=== PATIENT | male | born 1945 | race Caucasian/White ===

== ENCOUNTER 2018-02-19 16:07 | Observation (INO) | payer OTHER ==
[~2018-02-19] VITALS: Ht 172.7 cm; Wt 74.8 kg
[~2018-02-19 16:07] MED LIST: ACYCLOVIR200 MG PO; ALLOPURINOL300 MG PO; ASPIRIN325 MG PO; AZITHROMYCIN250 MG PO; CODEINE-GUAIFE120 ML PO; COZAAR50 MG PO; DIGOXIN250 MCG PO; DOXAZOSIN MESYLA1 MG PO; DOXAZOSIN MESYLA8 MG PO; FELODIPINE ER5 MG PO; FUROSEMIDE40 MG PO; GEMFIBROZIL600 MG PO; GLIPIZIDE XL5 MG PO; JANUMET 50-1,01 EACH PO; LANTUS100 UNITS/ SUB-Q; LEVOTHYROXINE50 MCG PO; METFORMIN HCL500 MG PO; METOPROLOL SUC100 MG PO; NEURONTIN400 MG PO; NITROSTAT0.4 MG SL; OMEPRAZOLE20 MG PO; ONGLYZA2.5 MG PO; PRAVACHOL20 MG PO; PREDNISONE1 MG PO; PROBENECID-COL1 EACH PO; ROCALTROL0.5 MCG PO; THERMAZENE TOP
[2018-02-19] MEDS ORDERED: ASPIR 8181 MG PO (16:34)
--- NOTE | 2018-02-19 19:30 | NUR ---
PT SHIFT REPORT RECEIVED FROM DAY SHIFT RN. ALL QUESTIONS ANSWERED. PT RESTING IN BED. WILL CONTINUE TO CLOSELY MONITOR.
--- NOTE | 2018-02-19 20:00 | NUR ---
MD IN ROOM TO ASSESS PT ON ADMISSION.
--- NOTE | 2018-02-19 20:30 | NUR ---
-PT SHIFT ASSESSMENT COMPLETED. PT BREATH SOUNDS CLEAR. PT IS ON 1-2 LITTER OXYGEN VIA NC AT HOME. PT IS ON 1L NC AT THIS TIME. NO EDEMA NOTED IN EXTREMITIES. PT STATES IT TENDS TO COME AND GO. BOWEL TONES ACTIVE. PT COMPLAINS OF CONSTIPATION AND REQUESTING FOR SOMETHING TO ASSIST WITH IT. NO OTHER ISSUES AT THIS TIME. WILL CONTINUE TO CLOSELY MONITOR.
--- NOTE | 2018-02-19 21:30 | NUR ---
PT REQUESTING CLEAR LIQUIDS. PT DRINKING VEGETABLE BROTH AND SUGAR FREE JELLO. PT TOLERATED WELL. FRESH ICE WATER AT BEDSIDE.
--- NOTE | 2018-02-19 21:45 | NUR ---
ALL MEDICATIONS ADMINISTERED. PT SWOLLOWED PILLS WITH NO ISSUES. PT IS VERY TALKATIVE AND INTERACTIVE. PT CALLS APPROPRIATELY.
--- NOTE | 2018-02-19 22:10 | NUR ---
PT UP TO BATHROOM. PT URINATED IN URINAL AND THEN SAT TO HAVE BM. PT HAD A SOFT MEDIUM BLACK COLLORED STOOL. HEMOCCULT POSITIVE. PT BACK TO BED. PT IS STEADY ON HIS FEET WITH ONE PERSON STAND-BY TO MANAGE CORDS. PT DENIES ANY FURTHER QUESTIONS. WILL CONTINUE TO CLOSELY MONITOR.
--- NOTE | 2018-02-20 | NUR ---
PT RESTING IN BED AT THIS TIME WITH THE TV ON. PT STATES "I HAVE BEEN IN AND OUT OF SLEEPING". 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 WILL CONTINUE TO ENCOURAGE REST. PT HAS CALL LIGHT. WILL CONTINUE TO MONITOR.
--- NOTE | 2018-02-20 03:30 | NUR ---
PT CALLED TO USE URINAL. PT UP AT BEDSIDE WITH URINAL WITH NO ISSUES. PT BACK TO BED. GAVE WARM BLANKET. LEMON SWABS AT BEDSIDE FOR DRY MOUTH. FLUIDS CHANGED TO 65ML PER HOUR PER ORDERS. WILL CONTINUE TO CLOSELY MONITOR.
--- NOTE | 2018-02-20 05:15 | NUR ---
TIPPLE GREASER IN TO DRAW MORNING LABS. PT RESTING IN BED. PT DENIES ANY NEEDS AT THIS TIME.
--- NOTE | 2018-02-20 06:30 | NUR ---
PT AND THIS RN DOWN TO 2-VIEW XRAY WITH SPECIAL EDUCATION PROFESSOR. PT TOLERATED WELL.
--- NOTE | 2018-02-20 07:58 | NUR ---
PT AWAKE, ASSESSMENT COMPLETED, DENIES C/O AT THIS TIME. VITAL SIGNS TAKEN AND A.M. MEDS GIVEN WITH SIP OF WATER.
--- NOTE | 2018-02-20 08:59 | HP ---
[facility] [address] [place], [place] [address] Signed ADMISSION DATE: 02/19/2018 TIME OF SERVICE: 7 p.m. CHIEF COMPLAINT: Dark stools. HISTORY OF PRESENT ILLNESS: Mr. Peoples is a 72-year-old gentleman with multiple medical problems, including chronic systolic heart failure with NYHA class III symptoms and chronic kidney disease stage 4 with a baseline creatinine of 3 to 3.4. The patient is known to have a history of gastrointestinal bleeding. The patient was hospitalized in 2012, underwent an endoscopy, which showed pyloric bulb ulcer. The patient presented to the emergency room after being referred from the [facility] for history of melanotic stools with a hemoglobin of 9.9. Dr. Browne consulted me and the patient was placed under observation. After interview and review of multiple medical notes obtained from Dr. Novak's office, primary care provider; airplane technician, Dr. David, and aircraft cleaner, Dr. Cuellar, it is learnt that the patient has chronic systolic heart failure with an EF of 20%-25%, with severe mitral regurgitation with underlying coronary artery disease. The patient was recently hospitalized between the and December, for decompensated heart failure. Review of the discharge summary from [facility] notes a hemoglobin of 10.5 to 10.8 during the hospitalization. Creatinine was 3.0. The patient describes having dark stools at least for the last one week. Symptoms started with no particular contact such as NSAID use or blood thinner use. The dark stools have been ongoing, moderate grade, one episode daily. No aggravating factors. No relieving factors. He denies having any associated features of nausea, vomiting, abdominal pain, heart burn, or bright red bleeding per rectum. Given his prior history and worsening symptoms, he presented to the emergency room after being referred to the clinic. PAST MEDICAL HISTORY: 1. Chronic systolic heart failure with left ventricular ejection fraction of 20%-25%, class NYHA III symptoms with severe mitral regurgitation. 2. Coronary artery disease with recent coronary angiogram showed akinetic segments in Electronically Signed By: NICKIE MEADE MD 02/20/18 0859 PATIENT NAME: LELAND PEOPLES HISTORY AND PHYSICAL DATE OF : 43 REPORT #: [id number] PHYSICIAN: NICKIE MEADE MD PCP: ELIGIO DUARTE MD REPORT IS CONFIDENTIAL AND NOT TO BE RELEASED WITHOUT AUTHORIZATION [facility] [address] [place], [place] [address] Signed the inferior wall and occlusion of the radial graft. Patent CARBAJAL to LAD and SVG to PDA. 3. Chronic hypoxic respiratory failure on home oxygen at 2L. 4. Benign prostatic hyperplasia. 5. Type 2 diabetes mellitus. 6. History of gastrointestinal bleeding as detailed above. 7. Hypothyroidism. 8. Anemia secondary to chronic kidney disease. 9. Probable transitional cell carcinoma status post TURB. 10. Probable Parkinson disease. 11. Chronic Kidney Disease Stage 4. SOCIAL HISTORY: The patient is . Quit tobacco use in 1994. Seldom takes alcohol. FAMILY HISTORY: Reviewed for hypertension, cancer, nothing contributing to the presenting complaint. REVIEW OF SYSTEMS: A 14-point review of systems were completed. All were negative except as listed above. PHYSICAL EXAMINATION: VITAL SIGNS: Temperature 36.5-36.7, heart rate of 73-77, respirations 16-18, blood pressure 127-146 by 50-67. Saturations of 99% on 2 L. weight is 75 kg. GENERAL: The patient is in no acute physical distance. EYES: No scleral icterus. EARS, NOSE, MOUTH, AND THROAT: Moist oral mucosa. No nasal discharge. CARDIAC: S1, S2 regular. Pansystolic murmur heard in the mitral area. No pitting pedal edema. No jugular venous distention. LUNGS: Bilaterally clear to auscultation without any crackles or wheezing. GASTROINTESTINAL: The abdomen is soft, nontender, nondistended. No organomegaly. GENITOURINARY: No Hirsch catheter in situ. SKIN: No obvious rash of the exposed skin. NEUROLOGIC: The patient is alert and oriented x3. No aphasia. No obvious motor deficits. The patient does seem to have a resting tremor. HEMATOLOGIC: No purpuric lesions. PSYCHIATRIC: The patient is alert and oriented x3. LABORATORY DATA: 1. CBC shows a WBC of 7.3, hemoglobin of 9.9, hematocrit of 28.9, platelet count of 103. 2. Chemistries: Sodium is 136, potassium is 2.9, chloride 94, bicarb 29. 3. Renal function, BUN 146 and creatinine is 3.41. 4. Serum glucose 199, calcium is 10.3, magnesium is 2.9. Electronically Signed By: NICKIE MEADE MD 02/20/18 0859 PATIENT NAME: LELAND PEOPLES HISTORY AND PHYSICAL DATE OF : 43 REPORT #: [id number] PHYSICIAN: NICKIE MEADE MD PCP: ELIGIO DUARTE MD REPORT IS CONFIDENTIAL AND NOT TO BE RELEASED WITHOUT AUTHORIZATION [address] [address] Signed 5. Liver function test: Total bilirubin 0.6, AST 18, ALT 13, alkaline phosphatase 82. 6. Serum albumin is 4.4. 7. Coagulation studies: INR 1, APTT is 38.2. 8. Digoxin levels are pending. 9. Old chart reviewed. Notes from Dr. Cuellar, aircraft cleaner, for the patient's visit on February 05, 2018, report that the patient had a decrease in metolazone to 2 times a week; however, the patient reports that he continues to take metolazone daily. 10. Follow up notes from Dr. David. Plan to continue on torsemide 40 mg a day along with metolazone. Follow up LV function and there upon plans for defibrillator placement. 11. Discharge summary from [facility], when the patient was admitted between the and , he presented with weight gain, orthopnea. The patient was diuresed. His discharge creatinine was 3, then blood work from the 30 of January shows a creatinine of 3.46, with a BUN of 93, calcium was 10.3. Hemoglobin at that time was 13 and hematocrit was 40, platelet count was 121. ASSESSMENT AND PLAN: 1. Acute gastrointestinal bleeding, suspected upper, secondary to peptic ulcer disease versus gastritis versus angiodysplasia versus other causes. The patient is a 72-year-old gentleman with multiple medical problems who has a baseline anemia secondary to chronic kidney disease, presents with melanotic stools for the last one week, found to have a low hemoglobin. Abdominal examination is benign. The patient does not have any unstable hemodynamics at this point. Hence, the patient will be placed under observation. We will repeat a CBC in the morning. The patient will be started on IV pantoprazole. I have discussed with Dr. Aldridge and requested evaluation for upper GI endoscopic assessment. 2. Hypokalemia, secondary to diabetics. Replace with potassium chloride, follow labs. 3. Chronic systolic heart failure with an EF of 20%-25% with severe mitral regurgitation with underlying coronary artery disease with inferior wall hypokinesis with grade 3 diastolic dysfunction. The patient appears euvolemic, maintain gentle hydration, continue on diuretic regimen, monitor for signs of fluid overload. 4. Chronic kidney disease stage 4. The patient's creatinine is similar to prehospitalization labs. We will continue to monitor closely. 5. Benign prostatic hyperplasia. Continue on Flomax and finasteride. 6. Type 2 diabetes mellitus. As the patient has limited oral intake at the present, he will be placed on a sliding scale insulin. 7. Hypothyroidism. Continue on levothyroxine. 8. Hyperlipidemia. Continue on Pravachol. 9. Deep venous thrombosis prophylaxis. The patient will be placed on SCDs. 10. Code status, is full code. Next-of-kin is Ms. Joy Peoples, the patient's . RISK ASSESSMENT: Electronically Signed By: NICKIE MEADE MD 02/20/18 0859 PATIENT NAME: LELAND PEOPLES HISTORY AND PHYSICAL DATE OF : 43 REPORT #: [id number] PHYSICIAN: NICKIE MEADE MD PCP: ELIGIO DUARTE MD REPORT IS CONFIDENTIAL AND NOT TO BE RELEASED WITHOUT AUTHORIZATION [facility] [address] [place], [place] [address] Signed High risk patient, GI bleed, multiple medical problems, who requests for the evaluation as documented above. Expected length of stay is less than 2 midnights, hence placed under observation. DISCUSSION: The details of evaluation and treatment plan have been discussed in great detail with the patient. All questions were answered. The case was discussed with Dr. Browne, and there upon Dr. Aldridge, general surgeon on-call. Nickie Meade MD LVR/MODL /[id number] cc: DO Erika oHwell MD Arian Kargar, DO Copies: MARGARITO CUELLAR MERSHED MD KARGAR, ARIAN DO ~ Electronically Signed By: NICKIE MEADE MD 02/20/18 0859 PATIENT NAME: LELAND PEOPLES HISTORY AND PHYSICAL DATE OF : 43 REPORT #: [id number] PHYSICIAN: NICKIE MEADE MD PCP: ELIGIO DUARTE MD REPORT IS CONFIDENTIAL AND NOT TO BE RELEASED WITHOUT AUTHORIZATION
--- NOTE | 2018-02-20 09:31 | NUR ---
FIRST UNIT OF PRBC STARTED PER DR. MEADE ORDER. A.M. MEDS GIVEN WITH SIP OF WATER. DR. GAMA IN TO ASSESS PT.
--- NOTE | 2018-02-20 10:55 | CONS ---
[facility] [address] [place], [place] [address] Signed DATE OF CONSULTATION: 02/20/2018 CONSULTING PHYSICIAN: Radha Gama MD REQUESTING PHYSICIAN: Orion Herr MD PROBLEM: Probable MELANOTIC stools. HISTORY OF PRESENT ILLNESS: This 72-year-old white man was admitted by Dr. Herr yesterday after presenting as an outpatient with complaints of dark black stool and a decrease of his hemoglobin to a current level of 7.9, previously 9.3. His hematocrit was 23.7. The patient is not anticoagulated and his INR was noted to be 1.0. He has had no hematemesis. It is notable that he recently was discharged from [facility], known to have chronic systolic heart failure and renal disease with a creatinine of about 3. In 2012, he was noted to have a pre-pyloric bulbar ulcer as noted by Dr. Aparicio on upper endoscopy. Colonoscopy was said to be normal. The patient has no abdominal pain and has been taking no nonsteroidal medication particularly. It is uncertain to me if he has ever had H. pylori. He was admitted by Dr. Herr to the intensive care unit for further monitoring and has been hemodynamically stable. Transfusion therapy has been initiated. He has had no further blood per rectum that is known. PAST MEDICAL HISTORY: As previously described, chronic systolic heart failure with left ventricular ejection fraction of 20%. Coronary angiogram recently performed showed akinetic segments of the inferior wall and occlusion of one of his previous grafts. The patient has a CARBAJAL to the LAD artery and a saphenous vein graft to the posterior descending artery. He has BPH, diabetes, hypothyroidism, anemia in part related to chronic kidney disease and a bladder cancer that has been treated by transurethral resection. He also was considered to have Parkinson's disease. SOCIAL HISTORY: He is . I know his Joy Peoples. She is currently on vacation with their daughter in the [place], [place] area and is returning home soon. REVIEW OF SYSTEMS: Electronically Signed By: RADHA GAMA MD 02/20/18 1055 PATIENT NAME: LELAND PEOPLES CONSULTATION DATE OF : 43 REPORT #: [id number] PHYSICIAN: RADHA GAMA MD PCP: ELIGIO DUARTE MD REPORT IS CONFIDENTIAL AND NOT TO BE RELEASED WITHOUT AUTHORIZATION [facility] [address] [place], [place] [address] Signed He denies any dysphagia or hematemesis. He has had no abdominal pain particularly. His appetite has been reasonable. He has very poor exercise tolerance. PHYSICAL EXAMINATION: GENERAL: Pleasant white man with a austin hair and a small pagan. He does not look systemically toxic. VITAL SIGNS: His pulse is 72 and regular. Blood pressure is 118 systolic. NECK: Shows no thyromegaly or cervical adenopathy. Trachea is midline. He has no carotid bruit. CHEST: Clear. He has no evidence of respiratory distress. HEART: Regular. I detect no murmur. ABDOMEN: Scaphoid, large and soft. There is no ascites. EXTREMITIES: Show no clubbing, cyanosis, or edema. LABORATORY DATA: Show white count today of 5.6, hematocrit of 23.8, and platelets 72,000 (etiology uncertain). His potassium this morning is 2.9, creatinine 3.19, glucose 136, magnesium 2.7, and calcium 9.4. Liver enzymes are normal. ASSESSMENT: It is highly probable that he has recurrent peptic ulceration. He is said to have a channel ulcer in the past. Review of the operative report from March 01, 2013, essentially 5 years ago, showed a "probable ulcer" of the junction of the pyloric bulb in the 1st portion of the duodenum, patchy distal gastritis, proximal gastric polyps. On colonoscopy, there was a 5 mm polyp at the hepatic flexure and internal hemorrhoids. I would recommend upper endoscopy be performed under sedation. We are mindful of his extremely poor cardiac function, but intravenous sedation and brief examination should not pose a great hazard in that regard. Assessment will be made obviously for H. pylori or other precipitating cause of ulcer if found. The risks of bleeding, infection, cardiac problems, so forth were reviewed in detail. We will ask for anesthesia assistance for sedation likely to include propofol. Transfusion therapy is underway and should be maintained. As regard to his lab studies with a potassium of 2.9 and magnesium that is elevated in the face of chronic renal failure, I do not believe it to be a contraindication to proceeding as I have described. MD XAVI Benson/MODL Electronically Signed By: RADHA GAMA MD 02/20/18 1055 PATIENT NAME: LELAND PEOPLES CONSULTATION DATE OF : 43 REPORT #: [id number] PHYSICIAN: RADHA GAMA MD PCP: ELIGIO DUARTE MD REPORT IS CONFIDENTIAL AND NOT TO BE RELEASED WITHOUT AUTHORIZATION [address] [address] Signed /[id number] cc: [facility] DO Orion Howell MD Arian Kargar, DO Lin Browne, DO Erika David MD Copies: MARGARITO NORIEGA LOHITH VEERAPPA MD KARGAR,LIN FLORES MERSHED MD ~ Electronically Signed By: RADHA GAMA MD 02/20/18 1055 PATIENT NAME: LELAND PEOPLES CONSULTATION DATE OF : 43 REPORT #: [id number] PHYSICIAN: RADHA GAMA MD PCP: ELIGIO DUARTE MD REPORT IS CONFIDENTIAL AND NOT TO BE RELEASED WITHOUT AUTHORIZATION
--- NOTE | 2018-02-20 11:19 | NUR ---
PT STOOD AT BEDSIDE WITH MINIMAL ASSIST. PT VOIDED 500 MLS CLEAR YELLOW URINE, RETURNED TO BED WITHOUT PROBLEMS.
[2018-02-20] MEDS ORDERED: HYDRALAZINE HC100 MG PO (12:47)
[2018-02-20] MEDS ORDERED: ISORDIL40 MG PO (12:51)
[2018-02-20] MEDS ORDERED: METOLAZONE2.5 MG PO (12:51)
[2018-02-20] MEDS ORDERED: K-TAB10 MEQ PO (12:53)
[2018-02-20] MEDS ORDERED: DAPSONE25 MG PO (12:55)
[2018-02-20] MEDS ORDERED: PROSCAR5 MG PO (12:56)
[2018-02-20] MEDS ORDERED: FLOMAX0.4 MG PO (13:08)
[2018-02-20] MEDS ORDERED: DEMADEX20 MG PO (13:09)
--- NOTE | 2018-02-20 13:40 | NUR ---
PT ALERT, ORIENTED AND SUPPORTED BY HIS DAUGHTER AND G.SON. PT FEELS HE HAS IMPROVED SOME, AWAITING THE RESULTS OF AN EGD. PT HAS HAD AN ULCER BEFORE, WITH QUITE A BIT OF BLOOD LOSS. REQUESTED PRAYER, WILL FOLLOW NEEDED
--- NOTE | 2018-02-20 13:54 | NUR ---
ANIKET (PHARMACY) IN TO TALK WITH PT CONCERNING HIS HOME MEDS. ASSESSMENT COMPLETED. 2ND UNIT PRBC CONTINUES TO INFUSE. PT REMAINS NPO FOR EGD THIS AFTERNOON.
--- NOTE | 2018-02-20 14:46 | NUR ---
2ND UNIT PRBC COMPLETED, IV FLUSHED WITH 10 ML NS AND LR ON STRAIGHT TUBING.
[2018-02-20] MEDS ORDERED: CEROVITE SENIO1 EACH PO (14:52)
[2018-02-20] MEDS ORDERED: GLUCOSAMINE SU750 MG PO (14:56)
[2018-02-20] MEDS ORDERED: XALATAN2.5 ML OU (14:56)
[2018-02-20] MEDS ORDERED: NITROSTAT0.4 MG SL (14:57)
--- NOTE | 2018-02-20 14:59 | NUR ---
MED REC COMPLETE
--- NOTE | 2018-02-20 15:55 | NUR ---
02/20/18 1555 Rosa Wan 1540 PATIENT ARRIVES TO PACU AWAKE AND TALKING. RESP EVEN AND UNLABORED. NC AT 2 LITERS, PATIENT ALWAYS WEARS OXYGEN AT HOME. PATIENT DENIES PAIN/NAUSEA.
--- NOTE | 2018-02-20 16:16 | NUR ---
PT ARRIVED TO ROOM 129 VIA STRETCHER AFTER EGD. PT AWAKE AND TALKING ON PHONE. VITAL SIGNS TAKEN.
[2018-02-20] MEDS ORDERED: ASPIR 8181 MG PO (16:51)
[2018-02-20] MEDS ORDERED: SUCRALFATE1 GM PO (16:52)
[2018-02-20] MEDS ORDERED: OMEPRAZOLE40 MG PO (16:52)
--- NOTE | 2018-02-20 17:21 | NUR ---
PT [facility] 2 UNITS. PT RETURNED FROM EGD AWAKE AND TALKING. VITAL SIGNS REMAIN STABLE.
--- NOTE | 2018-02-20 17:24 | NUR ---
H/H FROM LAB 10 & 29. FAMILY HERE AND PT WILL BE DISCHARGED HOME.
--- NOTE | 2018-02-20 18:16 | NUR ---
PT ATE 100% OF SOFT DIET. FAMILY IN ROOM AND DISCHARGE INSTRUCTIONS GIVEN. PT AND WIFT STATE UNDERSTANDING. SALINE LOCK DC'D WITH CATH INTACT. PT GETTING DRESSED.
--- NOTE | 2018-02-22 08:59 | OR ---
[facility] [address] [place], [place] [address] Signed DATE OF OPERATION: 02/19/2018 SURGEON: Radha Gama MD PREOPERATIVE DIAGNOSES: 1. Dark stool and anemia, prior history of pre-pyloric ulcer. 2. Severe cardiac dysfunction with congestive heart failure, and ejection fraction of 20% to 25%. POSTOPERATIVE DIAGNOSIS: Antral erosive changes and minimal ulceration, no sign of active bleeding. PROCEDURE: Esophagogastroduodenoscopy with biopsy. ANESTHESIA: Intravenous sedation, propofol infusion; Anderson Chávez CRNA. INDICATIONS: This 72-year-old white man is recently discharged from [facility] with exacerbation of congestive heart failure. He has ejection fraction of only 20% to 25%. He has had dark stool in the past several days, most recently yesterday for which he was admitted to the hospital when he was found to have hematocrit and hemoglobin that was low. Hemoglobin 9.2 now (recently 7.9). He has had no hematemesis. He does have distant history of pre-pyloric ulcer as noted by Dr. Ritesh Aparicio, several years ago from endoscopy at the time of similar presentation. A colonoscopy at that time showed a few small polyps. He has had no hematemesis and has no epigastric or generalized abdominal pain. He has undergone transfusion therapy. He is admitted to undergo upper endoscopy under sedation to assess the source of his bleeding. FINDINGS: There is no actual blood in the stomach, although there were punctate areas of erosion of the proximal stomach and definitely pre-pyloric erosive changes into small nonbleeding and shallow ulcerations as well. The duodenum was normal. The pylorus was nondeformed. CLOtest was negative 15 minutes postprocedure. DESCRIPTION OF PROCEDURE: The patient was brought to the endoscopy suite and given topical Hurricaine spray hypopharyngeal anesthesia and placed in lateral decubitus position. He was given intravenous sedation with propofol infusion with full cardiopulmonary monitoring. The Electronically Signed By: RADHA GAMA MD 02/22/18 0859 PATIENT NAME: LELAND PÉREZ OPERATIVE REPORT DATE OF : 43 REPORT #: [id number] PHYSICIAN: RADHA GAMA MD PCP: ELIGIO DUARTE MD REPORT IS CONFIDENTIAL AND NOT TO BE RELEASED WITHOUT AUTHORIZATION [facility] [address] [place] [address] [place], [place] [address] Signed lateral decubitus position [id number] was maintained. A bite block was placed. An Olympus video upper endoscope was passed in the hypopharynx. The vocal cords and hypopharyngeal area appeared normal. The scope was advanced to the esophagus throughout its length it was normal with no sign of neoplasm or varices. The scope was advanced to the stomach, which was insufflated with air. There were few erosive changes of the upper stomach. The antrum had mild edema and some pre-pyloric erosive changes in 2 areas suggestive of very shallow ulcerations that were linear. There is certainly no deep ulceration. The scope was passed through the pylorus into the duodenum, which had chronic inflammation, but no sign of ulceration or neoplasm. Careful inspection of the pyloric channel as well as the bulb, continued to show no actual blood or ulceration. We focus attention to the antrum, allowed for close inspection of the erosive changes, and it is possible that these were responsible for his bleeding. Biopsies were taken of the antrum and proximal stomach for FROY testing. The scope was retroflexed and a small hiatal hernia was noted. The scope was withdrawn to the distal esophagus, which was normal. Careful withdrawal of scope showed no other findings. The patient was taken to the recovery room in good condition. CONCLUDING DIAGNOSIS: Likely his bleeding has been related to these pre-pyloric erosive changes. I am hesitant to embark upon colonoscopy unless the continued bleeding is noted. PLAN: We will initiate Carafate and continue PPI medication. MD XAVI Benson/MODL /[id number] cc: MD Eligio Guadalupe MD Copies: NICKIE MEADE MD Electronically Signed By: RADHA GAMA MD 02/22/18 0859 PATIENT NAME: LELAND PÉREZ OPERATIVE REPORT DATE OF : 43 REPORT #: [id number] PHYSICIAN: RADHA GAMA MD PCP: ELIGIO DUARTE MD REPORT IS CONFIDENTIAL AND NOT TO BE RELEASED WITHOUT AUTHORIZATION [address] [address] Signed ELIGIO DUARTE MD ~ Electronically Signed By: RADHA GAMA MD 02/22/18 0859 PATIENT NAME: LELAND PÉREZ COURTNEY OPERATIVE REPORT DATE OF : 43 REPORT #: [id number] PHYSICIAN: RADHA GAMA MD PCP: ELIGIO DUARTE MD REPORT IS CONFIDENTIAL AND NOT TO BE RELEASED WITHOUT AUTHORIZATION
--- NOTE | 2018-02-23 14:31 | NUR ---
RECEIVED A CALL FROM EMILIANO INJECTION MOLDING MACHINE SETTER WITH [facility]. THEY ARE REQUESTING RECORDS FROM PATIENTS STAY AND DISCHARGE. CLINICALS FAXED TO [phone]. FAX CONFIRMATION RECEIVED.
== END 2018-02-20 18:20 | disposition home or self-care (01) ==
LOC: ED 16:07 → CCU 16:09 → ED 17:49 → CCU 17:49
PROVIDERS: ADMIT Internal Medicine
PROC: 0DB68ZX Excision of Stomach, Via Natural or Artificial Opening Endoscopic, Diagnostic (ICD-10-PCS; principal; 2018-02-19)
PROC: 0DB78ZX Excision of Stomach, Pylorus, Via Natural or Artificial Opening Endoscopic, Diagnostic (ICD-10-PCS; 2018-02-19)
DX: K25.4 Chronic or unspecified gastric ulcer with hemorrhage (principal); D62 Acute posthemorrhagic anemia; N28.9 Disorder of kidney and ureter, unspecified; I25.10 Atherosclerotic heart disease of native coronary artery without angina pectoris; I34.0 Nonrheumatic mitral (valve) insufficiency; E87.6 Hypokalemia; E11.22 Type 2 diabetes mellitus with diabetic chronic kidney disease; I13.0 Hypertensive heart and chronic kidney disease with heart failure and stage 1 through stage 4 chronic kidney disease, or unspecified chronic kidney disease; N18.4 Chronic kidney disease, stage 4 (severe); I50.22 Chronic systolic (congestive) heart failure; D63.1 Anemia in chronic kidney disease; J96.11 Chronic respiratory failure with hypoxia; N40.0 Benign prostatic hyperplasia without lower urinary tract symptoms; E03.9 Hypothyroidism, unspecified; Z79.82 Long term (current) use of aspirin; Z95.1 Presence of aortocoronary bypass graft; Z88.8 Allergy status to other drugs, medicaments and biological substances; Z79.4 Long term (current) use of insulin; Z87.891 Personal history of nicotine dependence; Z79.899 Other long term (current) drug therapy
CPT/HCPCS: 36415; 36430; 71046; 80053; 80162; 83735; 84132; 85014; 85018; 85025; 85610; 85730; 86850; 86900; 86901; 86920; 96374; 96375; 96376; 99285; G0378; J2704; J3480; J7030; J7050; P9016

== ENCOUNTER → 2018-02-25 | Emergency (ER) | payer OTHER ==
[~2018-02-25] VITALS: Wt 90.7 kg
[~2018-02-25] MED LIST changes: +ASPIR 8181 MG PO; +CEROVITE SENIO1 EACH PO; +DAPSONE25 MG PO; +DEMADEX20 MG PO; +FLOMAX0.4 MG PO; +GLUCOSAMINE SU750 MG PO; +HYDRALAZINE HC100 MG PO; +ISORDIL40 MG PO; +K-TAB10 MEQ PO; +METOLAZONE2.5 MG PO; +OMEPRAZOLE40 MG PO; +PROSCAR5 MG PO; +SUCRALFATE1 GM PO; +XALATAN2.5 ML OU
--- NOTE | 2018-02-26 14:36 | NUR ---
I WAS CALLED AT 09 CONCERNING PT. MUKUL WAS CALLED JUST I WALKED INTO ER. LED AND SON TO SEE PT. THEN EXPLAINED TO THEM WHAT HAD BEEN HAPPENING, THEN HE WALKED OUT OF THE ROOM. I STAYED WITH FAMILY, PRAYED WITH THEM THEN TALKED A FEW MINUTES. I LEFT THE FAMILY WITH PT TILL THEY WERE READY TO LEAVE. SAID TO CALL [facility]. WHEN ALL OF FAMILY LEFT I CALLED HOME, WAITED FOR THEIR FLOOR TECHNICIAN TO ARRIVE, GOT THE PASSAGE QUILT. TRANSPORT [facility] ARRIVED, AND BODY WAS LOADED ON COT. I COVERED WITH PASSAGE QUILT THEN ESCORTED TO [facility]AN.
== END | disposition home or self-care (01) ==
LOC: ED 09:04 → EDBD 09:04 → ED 09:04
DX: I49.01 Ventricular fibrillation (principal); I46.9 Cardiac arrest, cause unspecified
CPT/HCPCS: 92950; 99284